=== PATIENT | female | born 1930 ===

== ENCOUNTER → 2020-01-05 | Outpatient (CLI) | payer OTHER ==
[~2020-01-05] VITALS: Ht 152.4 cm; Wt 50.8 kg
[~2020-01-05] MED LIST: AMLODIPINE BESY10 MG PO; COLESTIPOL HCL1 G1 PO; LISINOPRIL-HCT1 EAC1 PO; LOPERAMIDE 2 MG2 M1 PO; OXYBUTYNIN 5 MG5 M2 PO; PREDNISONE 2.52.5 M1 PO; TYLENOL #3 PO
--- NOTE | ~2020-01-05 | HPC ---
[facility] [address] [place] [address] PAIN MANAGEMENT CONSULTATION Name: STEFFEN BEDOLLA Room #: REG CARIN Mantilla.#: [id number] Admission: 01/05/20 Attend Phys: Se Loza MD Discharge: Date of : [birth year] Report #: [id number] CC: Torres Loza DATE OF SERVICE: 01/05/2020 CHIEF COMPLAINT: Low back pain with radiation into both legs. HISTORY OF PRESENT ILLNESS: The patient is a pleasant 89-year-old I am seeing today at the request of Dr. Torres Taylor. She was seen also by Dr. Luis Corona initially for concerns of neurovascular claudication. Studies then proved that there was no vascular component and attention was then turned to the lumbar spine for neurogenic claudication symptoms. She describes her pain as a steady, continuous pain 8/10 that began in her feet. Pain also radiates through her calves. It is bilateral, but worse on the right. When she is off her feet, the pain goes away. She is also getting some relief from Tylenol No. 3 without side effects taking it once a day. I have agreed that she might take it twice a day as long as she does not have dizziness and she is very cautious. She has no constipation and in fact has dealt with colitis-like symptoms all her life with frequent stools. No constipation issues at all for her. She has an x-ray that shows levoscoliosis of the lumbar spine with disk space narrowing at L3-L4 and a vacuum phenomenon. There is also endplate sclerosis and spurring as well as changes in L4-L5 and L5-S1 with hypertrophic facet joint degenerative changes. This would be consistent of course with her age. Her most significant advanced disease in the disks appears to be at L3-L4, but we do not have an MRI. I do not think that an MRI will change the direction of therapy, although it might slightly modify the location of the injection if we decide to go forward with one. She does have a relative contraindication that is severe osteoporosis, which is requiring Fosamax. Her most recent bone scan showed that she has a high fracture risk and high dose of corticosteroids or frequent use of them might worsen that concern. MEDICATIONS: Generic Fosamax, amlodipine, lisinopril, hydrochlorothiazide, colestipol, loperamide, oxybutynin. She does take prednisone 2.5 mg per day. ALLERGIES: None. PAST MEDICAL HISTORY: Chronic cystitis; chronic kidney disease stage 3; insomnia; gout; abdominal aortic aneurysm, being watched; chronic diarrhea; peripheral vascular disease; gastroesophageal reflux disease; hypertension. SOCIAL HISTORY: She is independent, drives her own car. She denies use of tobacco and alcohol. PHYSICAL EXAMINATION: GENERAL: She is a pleasant, sharp female. VITAL SIGNS: Blood pressure is 122/73, heart rate 61, respirations 14, BMI is 21.9. She can move independently from sitting to standing position, but she walks with a fairly slow stiff gait. She is not using a cane. She has not fallen in the last 3 months. CHEST: Clear. CARDIAC: Rhythm was regular. ABDOMEN: Scaphoid. MUSCULOSKELETAL: Spine is tender, but there are no scars. Range of motion is limited by restrictions and consistent with age and symptoms. She has a levoscoliosis of the lumbar spine. Straight leg raising reproduces some pain bilaterally in the calves. She complains of some numbness in the feet. Generalized weakness is noted in the lower extremities. Deep tendon reflexes are absent bilaterally. IMPRESSION: Chronic low back pain with bilateral radiating pain into the calves and bilaterally. Consideration here is for lumbar radiculopathy and treatment with epidural steroid injection for symptomatic relief. Procedure was explained in some detail including risks and benefits. Due to her management care plan, she will require preauthorization. We will seek preauthorization. I would like to bring her back as soon as possible since she is quite uncomfortable. Appointment was scheduled for at my earliest appointment and hopefully, we can get preauthorization performed by that time. No medications were ordered today. By: [id number] Se Loza MD /nt
[2020-01-05 14:08] VITALS: BP 122/73
--- NOTE | 2020-01-05 14:52 | NUR ---
Pain Clinic Assessment: 1. History of Osteoarthritis: BACK HANDS History of Rheumatoid Arthritis: 2. Height: 5 ft. 3 in. 152.4 cm. Weight: 112.0 lb. oz. 50.803 kg. Patient's BMI: 21.9 3. Vital Signs: BP: 122/73 Pulse: 61 Resp: 14 Temp: 02 Sat: 99 ECG Mon: 4. Pain Intensity: 8 5. Fall Risk: Dizziness: N Needs help standing or walking: N Fallen in the last 3 months: N Fall risk comments: 6. Patient on Blood Thinner: None 7. History of Hypertension: Y 8. Opioid Therapy greater than 6 weeks: Opiate Contract Signed: 9. Risk Assessment Tool Provided: 1-low 10. Functional Assessment Tool: 50/ 11. Recreational Drug Use: Drug Type: Tobacco Use: Never Smoker Tobacco Type: Amount or Packs/day: How Many Years: Alcohol Use: Yes Frequency: Weekly Quant: 1 3/WK
== END ==
LOC: PAIN 07:12
PROVIDERS: ATTEND Anesthesiology Pain Medicine
DX: M54.5 Low back pain (principal); Z79.891 Long term (current) use of opiate analgesic

== ENCOUNTER → 2020-01-08 | Outpatient (CLI) | payer OTHER ==
[~2020-01-08] VITALS: Ht 160 cm; Wt 53.5 kg
--- NOTE | ~2020-01-08 | HPC ---
[facility] [place] [address] PAIN MANAGEMENT CONSULTATION Name: STEFFEN BEDOLLA Room #: REG CARIN Jose Rafael.#: [id number] Admission: 01/08/20 Attend Phys: Se Loza MD Discharge: Date of : [birth year] Report #: [id number] CC: Antonina Loza DATE OF SERVICE: 01/08/2020 PROCEDURE NOTE: Lumbar epidural steroid injection under fluoroscopic guidance. INDICATION FOR PROCEDURE: The patient was seen in consultation on 01/05/2020. We have received preauthorization from her insurance company to go forward with the epidural injection discussed on that visit. There have been no significant changes. She has bilateral radiating pain from the back through the calves and into the legs consistent with lumbar radiculopathy. DESCRIPTION OF PROCEDURE: After informed consent, the patient was taken to fluoroscopic suite, placed prone, skin prepped with ChloraPrep. Skin anesthetized over the L4-L5 interspace. A 20-gauge Tuohy epidural needle was advanced to first attempt in the epidural space with loss of resistance technique. There was no blood, no CSF aspirated. 1 mL of Omnipaque was injected and an excellent epidurogram achieved. It was followed by 3 mL of 0.5% lidocaine mixed with 40 mg triamcinolone. She tolerated the procedure well. There were no complications. We utilized 40 mg instead of our usual 80 because of her daily use of prednisone and high risk of corticosteroid related compression fracture. Hopefully, the benefits of pain relief will outweigh the risks. Further injections will depend on response to her current injection. We will follow up in 1-2 months. By: [id number] Se Loza MD /nt
[2020-01-08 13:38] VITALS: BP 150/82
--- NOTE | 2020-01-08 13:42 | NUR ---
Pain Clinic Assessment: 1. History of Osteoarthritis: BACK HANDS History of Rheumatoid Arthritis: Not Applicable 2. Height: 5 ft. 3 in. 160.0 cm. Weight: 118.0 lb. oz. 53.524 kg. Patient's BMI: 20.9 3. Vital Signs: BP: 150/82 Pulse: 60 Resp: 18 Temp: 02 Sat: 97 ECG Mon: 4. Pain Intensity: 9 5. Fall Risk: Dizziness: N Needs help standing or walking: N Fallen in the last 3 months: N Fall risk comments: 6. Patient on Blood Thinner: None 7. History of Hypertension: Y 8. Opioid Therapy greater than 6 weeks: Opiate Contract Signed: 9. Risk Assessment Tool Provided: 1-low 10. Functional Assessment Tool: 50/70 11. Recreational Drug Use: Never Drug Type: Tobacco Use: Never Smoker Tobacco Type: Amount or Packs/day: How Many Years: Alcohol Use: Yes Frequency: Weekly Quant: 3-4
== END ==
LOC: PAIN 06:56
PROVIDERS: ATTEND Anesthesiology Pain Medicine
DX: M54.5 Low back pain (principal); M54.16 Radiculopathy, lumbar region; Z79.899 Other long term (current) drug therapy; Z72.89 Other problems related to lifestyle

== ENCOUNTER → 2020-06-21 | Outpatient (CLI) | payer OTHER ==
[~2020-06-21] VITALS: Ht 160 cm; Wt 53.3 kg
[2020-06-21 13:53] VITALS: BP 149/77
--- NOTE | 2020-06-21 14:09 | NUR ---
Pain Clinic Assessment: 1. History of Osteoarthritis: BACK HANDS History of Rheumatoid Arthritis: Not Applicable 2. Height: 5 ft. 3 in. 160.0 cm. Weight: 117.6 lb. oz. 53.343 kg. Patient's BMI: 20.8 3. Vital Signs: BP: 149/77 Pulse: 72 Resp: 14 Temp: 02 Sat: 98 ECG Mon: 4. Pain Intensity: 9 5. Fall Risk: Dizziness: N Needs help standing or walking: N Fallen in the last 3 months: N Fall risk comments: 6. Patient on Blood Thinner: None 7. History of Hypertension: Y 8. Opioid Therapy greater than 6 weeks: Opiate Contract Signed: 9. Risk Assessment Tool Provided: 1-low 10. Functional Assessment Tool: 50/70 11. Recreational Drug Use: Never Drug Type: Tobacco Use: Never Smoker Tobacco Type: Amount or Packs/day: How Many Years: Alcohol Use: Yes Frequency: Special Occasions Quant:
== END ==
LOC: PAIN 07:37
PROVIDERS: ATTEND Anesthesiology Pain Medicine
DX: M54.5 Low back pain (principal); M79.661 Pain in right lower leg; M79.662 Pain in left lower leg; M54.16 Radiculopathy, lumbar region; I10 Essential (primary) hypertension; Z72.89 Other problems related to lifestyle; Z79.899 Other long term (current) drug therapy

== ENCOUNTER → 2020-06-24 | Outpatient (CLI) | payer OTHER ==
[~2020-06-24] VITALS: Ht 160 cm; Wt 53.1 kg
[2020-06-24 14:31] VITALS: BP 141/74
--- NOTE | 2020-06-24 14:49 | NUR ---
Pain Clinic Assessment: 1. History of Osteoarthritis: BACK HANDS History of Rheumatoid Arthritis: Not Applicable 2. Height: 5 ft. 3 in. 160.0 cm. Weight: 117.0 lb. oz. 53.071 kg. Patient's BMI: 20.7 3. Vital Signs: BP: 141/74 Pulse: 74 Resp: 16 Temp: 02 Sat: 100 ECG Mon: 4. Pain Intensity: 7 5. Fall Risk: Dizziness: N Needs help standing or walking: N Fallen in the last 3 months: N Fall risk comments: 6. Patient on Blood Thinner: None 7. History of Hypertension: Y 8. Opioid Therapy greater than 6 weeks: Opiate Contract Signed: 9. Risk Assessment Tool Provided: 1-low 10. Functional Assessment Tool: 50/70 11. Recreational Drug Use: Never Drug Type: Tobacco Use: Never Smoker Tobacco Type: Amount or Packs/day: How Many Years: Alcohol Use: Yes Frequency: Special Occasions Quant: 1
== END | disposition home or self-care (01) ==
LOC: PAIN 06:58
PROVIDERS: ATTEND Anesthesiology Pain Medicine
DX: M54.16 Radiculopathy, lumbar region (principal); G89.29 Other chronic pain; M19.90 Unspecified osteoarthritis, unspecified site; Z98.890 Other specified postprocedural states; Z79.899 Other long term (current) drug therapy